=== PATIENT | female | born 1950 | race Caucasian/White ===

== ENCOUNTER → 2017-01-28 | Outpatient (CLI) | payer BC ==
[~2017-01-28] MED LIST: ASPI81TA28 PO; CALC500C70 PO; LTRCR30; VITAMIN D3 PO
--- NOTE | 2017-01-28 15:20 | MAMMOGRAPHY REPORT ---
BILATERAL DIGITAL SCREENING MAMMOGRAM TOMOSYNTHESIS WITH CAD: 01/28/2017 CLINICAL HISTORY: Routine screening. Patient has no complaints. TECHNIQUE: Breast tomosynthesis in addition to standard 2D mammography was performed. Current study was also evaluated with a Computer Aided Detection (CAD) system. COMPARISON: Comparison is made to exams dated: 12/17/2015 mammogram, 12/11/2014 mammogram, 12/09/2013 m ammogram, 11/02/2012 mammogram, 10/16/2011 mammogram, and 04/23/2011 mammogram - [facility] ter. BREAST COMPOSITION: The tissue of both breasts is heterogeneously dense, which may obscure small mas ses. FINDINGS: There are benign rim calcifications and a grouping of coarse benign-appearing calcificatio ns in the superior right breast. No suspicious mass, architectural distortion or cluster of new, susp icious microcalcifications is seen. IMPRESSION: ACR BI-RADS CATEGORY 2: BENIGN There is no mammographic evidence of malignancy. A 1 year screening mammogram is recommended. The pa tient will receive written notification of the results. Approximately 10% of breast cancers are not detected with mammography. A negative mammographic report should not delay biopsy if a clinically suggestive mass is present. Melony Anne M.D. ay/:01/28/2017 10:47:44 [employer] Sales Representative: [place] AUGUSTINE(Ronaldo)(Fransisco), [facility] letter sent: Normal 1/2 BI-RADS Code: ACR BI-RADS Category 2: Benign
== END | disposition home or self-care (01) ==
LOC: C.MAMM 10:09
PROVIDERS: ATTEND Obstetrics & Gynecology
DX: Z12.31 Encounter for screening mammogram for malignant neoplasm of breast (principal)

== ENCOUNTER 2017-06-07 09:45 | Emergency (ER) | payer BC ==
[~2017-06-07] VITALS: Ht 167.6 cm; Wt 63.1 kg
[2017-06-07 09:52] VITALS: TEMP 36.2; Ht 167.6 cm; Wt 63.1 kg
[2017-06-07] MEDS ORDERED: ONDANSETRON INJ 2 MG/ML 2 ML VIAL IV STA (10:05)
[2017-06-07] MEDS ORDERED: SODIUM CHLORIDE 0.9% 1000ML 1,000 ML IV STA (10:05)
[2017-06-07] MEDS ORDERED: PRMVC PV (10:12)
[2017-06-07] MEDS ORDERED: CHOL1000 PO (10:12)
[2017-06-07 10:32] LABS: BASO % 0.3 %; BASO ABS # 0.02 K/uL (0-0.2); EOS % 1.7 %; EOS ABS # 0.11 K/uL (0-0.5); HEMATOCRIT 40.6 % (37-47); HEMOGLOBIN 13.5 g/dL (12.0-16.0); IG# 0.03 K/uL (0.00-0.02); LYMPH % 17.7 %; LYMPH ABS # 1.15 K/uL (1.2-3.4); MEAN CELL VOLUME 90.8 fL (80-100); MEAN CORPUSCULAR HEMOGLOBIN 30.2 pg (25-34); MEAN CORPUSCULAR HGB CONC 33.3 g/dl (32-36); MEAN PLATELET VOLUME 10.9 fL (7.4-10.4); MONO % 8.5 %; MONO ABS # 0.55 K/uL (0.11-0.59); NEUT % 71.3 %; NEUT ABS # 4.64 K/uL (1.4-6.5); PLATELET COUNT 201 K/uL (130-400); RED CELL DISTRIBUTION WIDTH CV 13.6 % (11.5-14.5); RED CELL DISTRIBUTION WIDTH SD 45.3 fL (36.4-46.3)
--- NOTE | 2017-06-07 10:38 | DIAGNOSTIC IMAGING REPORT ---
CHEST ONE VIEW PORTABLE CLINICAL HISTORY: 66 years-old Female presenting with cp. TECHNIQUE: Portable upright AP view of the chest was obtained. COMPARISON: 01/30/2015. FINDINGS: Atherosclerosis of the aortic arch. Cardiac silhouette normal in size. Lungs hyperinflated. No focal opacity. No large effusion or pneumothorax. Degenerative changes of the thoracic spine. IMPRESSION: 1. Hyperinflation could suggest underlying emphysema. No convincing evidence of acute cardiopulmonary disease. Electronically signed by: Dontae Henderson M.D. 06/07/2017 10:37 AM Dictated Date/Time: 06/07/2017 10:36 AM
[2017-06-07 10:45] LABS: ALBUMIN 3.7 gm/dl (3.4-5.0); ALT/SGPT 18 U/L (12-78); AST/SGOT 9 U/L (15-37); BLOOD UREA NITROGEN 20 mg/dl (7-18); CARBON DIOXIDE 27 mmol/L (21-32); CREATININE 0.79 mg/dl (0.60-1.20); GLUCOSE 96 mg/dl (70-99); LIPASE 99 U/L (73-393); POTASSIUM 3.7 mmol/L (3.5-5.1); SODIUM 139 mmol/L (136-145)
[2017-06-07 10:50] LABS: ALKALINE PHOSPHATASE 76 U/L (45-117); TOTAL PROTEIN 7.1 gm/dl (6.4-8.2)
[2017-06-07 13:48] VITALS: BP 123/80; PULSE 71; O2SAT 98
--- NOTE | 2017-06-07 16:46 | EMERGENCY ROOM VISIT NOTE ---
History Report prepared by Jennifer: Yuliet Mitchell Under the Supervision of: Dr. Abdon Hendrix D.O. First contact with patient: 09:54 Chief Complaint: OTHER COMPLAINT Stated Complaint: FAINTING,NAUSEA,FATIGUE, FEELIN WIPED OUT History of Present Illness The patient is a 66 year old female who presents to the Emergency Room with complaints of generalized illness beginning last night. The patient states after eating dinner last night she started to feel felt faint, gaseous, nauseous and had the cold sweats. She notes this episode lasted for about 3 minutes before she had an episode of vomiting. After she vomited, the patient states she felt very fatigued. The patient states she slept normally last night , but when she woke up this morning she had another episode of feeling faint. She denies passing out during either episode of feeling faint. After her episode this morning, the patient states she feels very fatigued and "wiped out ". She denies any other episode of vomiting since last night. The patient's last bowel movement was last night which she reports was normal. The patient notes she had an alcoholic beverage last night with her which had an honey in it which she thinks may be causing her symptoms. The patient's he reports he also felt slightly nauseous this morning. Pt denies headache, change in vision, urinary burning, ringing in her ears, rashes, abdominal pain, fevers, chest pain, shortness of breath, diarrhea, pain with urination, and melena. She reports a history of borderline high cholesterol. She denies any history of diabetes or hypertension. The patient denies any recent travel. She is not a smoker. The patient has a history of a . Source of History: patient Onset: last night Position: other (generalized) Quality: other (illness) Timing: other (episode) Associated Symptoms: + nausea, + vomiting, + fatigue, No chest pain, No SOB , No urinary symptoms Review of Systems See HPI for pertinent positives & negatives. A total of 10 systems reviewed and were otherwise negative. Past Medical & Surgical Surgical Problems: (1) H/O section Family History Patient reports no known family medical history. Social History Smoking Status: Never Smoker Smokeless Tobacco Use: No Alcohol Use: occasionally Marital Status: Housing Status: lives with significant other Current/Historical Medications Scheduled Aspirin (Aspirin Ec), 81 MG PO DAILY Calcium/Vitamin D (Os-[place] 500 Plus D), 1 TAB PO DAILY Cholecalciferol (Vitamin D3), 1 TAB PO DAILY Estrogens, Conjugated (Premarin), 0.5 GM PV WK Allergies Coded Allergies: Bacitracin (Verified Allergy, Unknown, RASH, 11/10/13) Nickel (Verified Allergy, Unknown, RASH, 11/10/13) Physical Exam Vital Signs Date Time Temp Pulse Resp B/P (MAP) Pulse Ox O2 Delivery O2 Flow Rate FiO2 06/07/17 13:48 71 20 123/80 98 06/07/17 12:20 67 18 133/81 98 Room Air 06/07/17 09:52 36.2 65 20 141/82 99 Room Air Physical Exam GENERAL: Sitting up in bed, alert, well appearing, well nourished, no distress, non-toxic EYE EXAM: normal conjunctiva. PERRL and EOM's intact. OROPHARYNX: no exudate, no erythema, lips, buccal mucosa, and tongue normal and mucous membranes are moist NECK: supple, no nuchal rigidity, no adenopathy, non-tender LUNGS: Clear to auscultation. Normal chest wall mechanics HEART: no murmurs, S1 normal and S2 normal ABDOMEN: abdomen soft, non-tender, normo-active bowel sounds, no masses, no rebound or guarding. BACK: Back is symmetrical on inspection and there is no deformity, no midline tenderness, no CVA tenderness. SKIN: no rashes and no bruising UPPER EXTREMITIES: upper extremities are grossly normal. LOWER EXTREMITIES: No pitting edema. NEURO EXAM: Normal sensorium, cranial nerves II-XII intact, normal speech, no weakness of arms, no weakness of legs. No drift. Finger to nose intact. Sensation intact. Medical Decision & Procedures ER Provider Diagnostic Interpretation: Radiology results as stated below per my review and the radiologist's interpretation: CHEST ONE VIEW PORTABLE FINDINGS: Atherosclerosis of the aortic arch. Cardiac silhouette normal in size. Lungs hyperinflated. No focal opacity. No large effusion or pneumothorax. Degenerative changes of the thoracic spine. IMPRESSION: 1. Hyperinflation could suggest underlying emphysema. No convincing evidence of acute cardiopulmonary disease. Electronically signed by: Dontae Henderson M.D. Laboratory Results 06/07/17 10:15 Red Blood Count 4.47, Mean Corpuscular Volume 90.8, Mean Corpuscular Hemoglobin 30.2, Mean Corpuscular Hemoglobin Concent 33.3, Mean Platelet Volume 10.9, Neutrophils (%) (Auto) 71.3, Lymphocytes (%) (Auto) 17.7, Monocytes (%) (Auto) 8.5, Eosinophils (%) (Auto) 1.7, Basophils (%) (Auto) 0.3, Neutrophils # (Auto) 4.64, Lymphocytes # (Auto) 1.15, Monocytes # (Auto) 0.55, Eosinophils # (Auto) 0.11, Basophils # (Auto) 0.02 06/07/17 10:15 Test 06/07/17 10:15 06/07/17 11:30 06/07/17 12:36 White Blood Count 6.50 K/uL (4.8-10.8) Red Blood Count 4.47 M/uL (4.2-5.4) Hemoglobin 13.5 g/dL (12.0-16.0) Hematocrit 40.6 % (37-47) Mean Corpuscular Volume 90.8 fL (80-100) Mean Corpuscular Hemoglobin 30.2 pg (25-34) Mean Corpuscular Hemoglobin Concent 33.3 g/dl (32-36) Platelet Count 201 K/uL (130-400) Mean Platelet Volume 10.9 fL (7.4-10.4) Neutrophils (%) (Auto) 71.3 % Lymphocytes (%) (Auto) 17.7 % Monocytes (%) (Auto) 8.5 % Eosinophils (%) (Auto) 1.7 % Basophils (%) (Auto) 0.3 % Neutrophils # (Auto) 4.64 K/uL (1.4-6.5) Lymphocytes # (Auto) 1.15 K/uL (1.2-3.4) Monocytes # (Auto) 0.55 K/uL (0.11-0.59) Eosinophils # (Auto) 0.11 K/uL (0-0.5) Basophils # (Auto) 0.02 K/uL (0-0.2) RDW Standard Deviation 45.3 fL (36.4-46.3) RDW Coefficient of Variation 13.6 % (11.5-14.5) Immature Granulocyte % (Auto) 0.5 % Immature Granulocyte # (Auto) 0.03 K/uL (0.00-0.02) D-Dimer 380 ug/L FEU (0-500) Anion Gap 7.0 mmol/L (3-11) Est Creatinine Clear Calc Drug Dose 65.5 ml/min Estimated GFR () 90.4 Estimated GFR (Non- 78.0 BUN/Creatinine Ratio 25.6 (10-20) Calcium Level 9.0 mg/dl (8.5-10.1) Total Bilirubin 0.4 mg/dl (0.2-1) Direct Bilirubin 0.1 mg/dl (0-0.2) Aspartate Amino Transf (AST/SGOT) 9 U/L (15-37) Alanine Aminotransferase (ALT/SGPT) 18 U/L (12-78) Alkaline Phosphatase 76 U/L (45-117) Total Protein 7.1 gm/dl (6.4-8.2) Albumin 3.7 gm/dl (3.4-5.0) Lipase 99 U/L (73-393) Urine Color YELLOW Urine Appearance CLOUDY (CLEAR) Urine pH 8.5 (4.5-7.5) Urine Specific [place] 1.011 (1.000-1.030) Urine Protein NEG (NEG) Urine Glucose (UA) NEG (NEG) Urine Ketones NEG (NEG) Urine Occult Blood 1+ (NEG) Urine Nitrite NEG (NEG) Urine Bilirubin NEG (NEG) Urine Urobilinogen NEG (NEG) Urine Leukocyte Esterase NEG (NEG) Urine WBC (Auto) 0 /hpf (0-5) Urine RBC (Auto) 5-10 /hpf (0-4) Urine Hyaline Casts (Auto) 1-5 /lpf (0-5) Urine Epithelial Cells (Auto) >30 /lpf (0-5) Urine Bacteria (Auto) NEG (NEG) Urine Test NEG (NEG) Troponin I < 0.015 ng/ml (0-0.045) Laboratory results per my review. Medications Administered Medications (Trade) Dose Ordered Sig/Han Route Start Time Stop Time Status Last Admin Dose Admin Sodium Chloride 1,000 ml @ 999 mls/hr Q1H1M STAT IV 06/07/17 10:05 06/07/17 11:05 DC 06/07/17 10:26 999 MLS/HR Ondansetron HCl (Zofran Inj) 4 mg NOW STAT IV 3/25/18 10:05 06/07/17 10:08 DC 06/07/17 10:26 4 MG ECG Per My Interpretation Indication: weakness Rate (beats per minute): 55 Rhythm: sinus bradycardia Findings: other (normal axis, nonspecific ST elevation in lateral leads) ED Course ED COURSE: Vital signs were reviewed and showed normal The patients medical record was reviewed The above diagnostic studies were performed and reviewed. ED treatments and interventions as stated above. 0955: The patient was evaluated in room B2. A complete history and physical examination was performed. 1005: Ordered Zofran Inj 4 mg IV, Sodium Chloride 1000 ml @ 999 mls/hr IV. 1221: The patient is feeling better. 1327: The patient feels back to her baseline. She would like to go home. 1338: Upon reevaluation, the patient is resting comfortably.I discussed my findings with the patient and she understands and agrees with the treatment plan. Based on the patients age, coexisting illnesses, exam and lab findings the decision to treat as an outpatient was made. The patient remained stable while under my care. The patient appeared well at the time of discharge. Medical Decision Differential diagnosis includes etiologies such as benign positional vertigo, dehydration, hypovolemia, anemia, tumor, infection, hypoglycemia, electrolyte abnormalities, cardiac sources, intracerebral event, toxicologic, neurologic, as well as others were entertained. Patient is a 66-year-old female that presents to the ER for feeling weak. Patient last night felt like she had to burp and vomited. After that she felt very run down. felt nauseous but did not vomit. They both drank an drink. CBC along with BMP, LFTs, bilirubin and lipase was negative. Troponin was negative 2. D-dimer was negative. EKG showed T-wave flattening in the lateral leads. No old to compare to. Offered to observe the patient declined. She was feeling significant better following fluids and Zofran. I do not believe that this is cardiac although impossible to rule out due to the limitations of the ER evaluation and I explained this at length to the patient. She will follow-up with her PCP as an outpatient. Favor that this is likely GI in nature. Discussed with Pt concerning signs and symptoms to watch out for. Pt was instructed to follow up with their PCP and discussed with the patient their option to return to the ED at anytime for persistent or worsening symptoms. The appropriate anticipatory guidance and out-patient management, including indications for return to the emergency department, were explained at length to the patient and understood. Medication Reconcilliation Current Medication List: was personally reviewed by me Blood Pressure Screening Patient's blood pressure: Normal blood pressure Impression Primary Impression: Weak Critical Care I have personally spent 35 minutes of critical care time in the direct management of this patient. This includes bedside care, interpretation of diagnostic studies, and testing, discussion with consultants, patient, and family members, and other required patient management activities. This 35 minutes is in excess of all separately billable procedures. Scribe Attestation The scribe's documentation has been prepared under my direction and personally reviewed by me in its entirety. I confirm that the note above accurately reflects all work, treatment, procedures, and medical decision making performed by me. Departure Information Dispostion Home / Self-Care Referrals Deepak Jacobsen M.D. (PCP) Forms HOME CARE DOCUMENTATION FORM, IMPORTANT VISIT INFORMATION, WORK / SCHOOL INSTRUCTIONS Patient Instructions ED Weakness ALISA, My [facility] Additional Instructions Please follow up with your primary care doctor with in the next 24 hours. Any worsening of your symptoms, please return to the ED immediately. This includes any fevers greater than 100.4, worsening pain, chest pain, shortness breath, persistent nausea, vomiting, unable to eat or drink, or any other concerning signs or symptoms from your standpoint. Please refrain from any excessive physical exertion until followed up by her primary care doctor. Please try to eat a bland diet over the next 24 hours.
== END 2017-06-07 13:49 | disposition home or self-care (01) ==
LOC: C.EDB 09:47
DX: R53.1 Weakness (principal); R11.2 Nausea with vomiting, unspecified; Z79.82 Long term (current) use of aspirin; Z79.890 Hormone replacement therapy; Z91.048 Other nonmedicinal substance allergy status; Z88.0 Allergy status to penicillin

== ENCOUNTER → 2017-06-24 | Outpatient (CLI) | payer BC ==
[~2017-06-24] MED LIST changes: +CHOL1000 PO; -LTRCR30; +PRMVC PV; -VITAMIN D3 PO
--- NOTE | 2017-06-24 10:14 | DIAGNOSTIC IMAGING REPORT ---
RIGHT FOOT 3 VIEWS CLINICAL HISTORY: Right foot pain. FINDINGS: 3 views of the right foot are obtained. No prior studies are available for comparison at the time of dictation. The skeletal structures are osteopenic. No fracture is seen. Mild arthritic change and joint space narrowing is seen at the first metatarsophalangeal joint. There is a large plantar calcaneal enthesophyte. Degenerative spurring is seen along the dorsal aspect of the tarsal bones. A high arch is noted. Mild dorsal soft tissue edema is noted. IMPRESSION: 1. Mild dorsal soft tissue swelling with no acute bony abnormality identified. 2. Osteopenia, mild degenerative change, and heel spur as above. Electronically signed by: Clive Mullen M.D. 06/24/2017 10:13 AM Dictated Date/Time: 06/24/2017 10:11 AM
== END ==
LOC: C.RAD1850 09:57
PROVIDERS: ATTEND Internal Medicine
DX: M77.31 Calcaneal spur, right foot (principal); M85.861 Other specified disorders of bone density and structure, right lower leg